=== PATIENT | male | born 1980 | race Caucasian/White ===

== ENCOUNTER 2017-05-17 09:25 | Observation (INO) | payer OTHER, MEDICAID ==
[2017-05-17] MEDS ORDERED: Sodium Chloride 0.9% 1,000 ML IV ONE (09:58)
--- NOTE | 2017-05-17 10:22 | EDM.PDOC ---
ED HPI GENERAL MEDICAL PROBLEM - General Chief Complaint: Chest Pain Stated Complaint: heart skipping a beat Time Seen by Provider: 05/17/17 09:50 Source of Information: Reports: Patient History Limitations: Reports: No Limitations - History of Present Illness INITIAL COMMENTS - FREE TEXT/NARRATIVE: HISTORY AND PHYSICAL: History of present illness: [37-year-old male with a history of long-term tobacco abuse, untreated hypertension and hypercholesterolemia, known type 2 diabetes with which the patient is noncompliant and a family history of coronary artery disease. Patient 's father had stents at 50 years old]. Patient now presents to the emergency department complaining of exertional chest pain over the last 2 days. Patient has had associated diaphoresis and shortness of breath as well as palpitations and lightheadedness associated with episodes. He describes them as exertional. Is no productive cough or fever. No pleuritic pain. Pain is not reproducible with palpation or movement Review of systems: As per history of present illness and below otherwise all systems reviewed and negative. Past medical history: As per history of present illness and as reviewed below otherwise noncontributory. Surgical history: As per history of present illness and as reviewed below otherwise noncontributory. Social history: No reported history of drug or alcohol abuse. Family history: As per history of present illness and as reviewed below otherwise noncontributory. Physical exam: Well-appearing 37-year-old male no acute distress clear lungs regular rate and rhythm nontender chest wall benign exam with normal symmetrical bilateral lower extremity HEENT: Atraumatic, normocephalic, pupils reactive, negative for conjunctival pallor or scleral icterus, mucous membranes moist, throat clear, neck supple, nontender, trachea midline. Lungs: Clear to auscultation, breath sounds equal bilaterally, chest nontender. Heart: S1S2, regular, negative for clicks, rubs, or JVD. Abdomen: Soft, nondistended, nontender. Negative for masses or hepatosplenomegaly. Negative for costovertebral tenderness. Pelvis: Stable nontender. Genitourinary: Deferred. Rectal: Deferred. Extremities: Atraumatic, negative for cords or calf pain. Neurovascular unremarkable. Neuro: Awake, alert, oriented. Cranial nerves II through XII unremarkable. Cerebellum unremarkable. Motor and sensory unremarkable throughout. Exam nonfocal. Diagnostics: [Chest x-ray no acute disease interpreted by me EKG normal sinus rhythm at 90 or more axis no STEMI] Therapeutics: [Patient stable and well-appearing. He took aspirin prior to arrival. 500 mg of by mouth Glucophage given to treat patients uncontrolled type 2 diabetes secondary to noncompliance] Impression: [Chest pain] Plan: [Signs and symptoms consistent with chest pain a possible cardiac etiology in a 37-year-old male with every cardiac risk factor including obesity tobacco hypertension cholesterol diabetes and family history in addition to his obvious male was. Workup unremarkable patient stable clinically. He took full- strength aspirin at home today. Case will be discussed with Rodri Schafer hospitalist transmission design engineer regarding observation telemetry admission for further cardiac workup and treatment as needed.] Definitive disposition and diagnosis as appropriate pending reevaluation and review of above. - Related Data Allergies Allergy/AdvReac Type Severity Reaction Status Date / Time No Known Allergies Allergy Verified 05/17/17 09:42 Home Meds: Home Meds Aspirin/Calcium Carbonate/Mag [Aspirin Buffered 325 mg Tab] 1 tab PO BID [History] Past Medical History HEENT History: Reports: None Cardiovascular History: Reports: Hypertension Other Cardiovascular History: Is supposed to be on high blood pressure medications; hasn't been for the past 6 years Respiratory History: Reports: None Gastrointestinal History: Reports: None Genitourinary History: Reports: None Musculoskeletal History: Reports: None Neurological History: Reports: None Psychiatric History: Reports: None Endocrine/Metabolic History: Reports: Other (See Below) Other Endocrine/Metabolic History: Borderline DM Hematologic History: Reports: None Immunologic History: Reports: None Oncologic (Cancer) History: Reports: None Dermatologic History: Reports: None - Infectious Disease History Infectious Disease History: Reports: None - Past Surgical History Head Surgeries/Procedures: Reports: None HEENT Surgical History: Reports: None Cardiovascular Surgical History: Reports: None GI Surgical History: Reports: Appendectomy, Cholecystectomy Male Surgical History: Reports: None Endocrine Surgical History: Reports: None Neurological Surgical History: Reports: None Musculoskeletal Surgical History: Reports: None Dermatological Surgical History: Reports: None Social & Family History - Family History Family Medical History: Noncontributory Cardiac: Reports: None Respiratory: Reports: None GI: Reports: None Psychiatric: Reports: None Endocrine/Metabolic: Reports: None Hematologic: Reports: None - Tobacco Use Smoking Status *Q: Current Every Day Smoker Years of Tobacco use: 20 Packs/Tins Daily: 0.5 - Caffeine Use Caffeine Use: Reports: Coffee - Recreational Drug Use Recreational Drug Use: No ED ROS GENERAL - Review of Systems Review Of Systems: See Below (History of present illness) ED EXAM, GENERAL - Physical Exam Exam: See Below (History of present illness) Course - Vital Signs Last Recorded V/S: Last Vital Signs Temp 37.0 C 05/17/17 09:37 Pulse 89 05/17/17 10:21 Resp 18 05/17/17 10:21 BP 169/120 H 05/17/17 10:21 Pulse Ox 94 L 05/17/17 10:21 - Orders/Labs/Meds Orders: Active Orders 24 hr Category Date Time Status Admission Status [Patient Status] [ADT] Stat ADT 05/17/17 10:55 Ordered Cardiac Monitoring [RC] . DIRECTED Care 05/17/17 09:49 Inactive EKG 12 Lead [EKG Documentation Completion] [RC] STAT Care 05/17/17 09:56 Active EKG Documentation Completion [RC] STAT Care 05/17/17 09:49 Inactive Labs: Laboratory Tests 05/17/17 05/17/17 05/17/17 Range/Units 09:55 09:55 09:55 WBC 7.55 (4.0-11.0) K/uL RBC 5.69 (4.50-5.90) M/uL Hgb 15.7 (13.0-17.0) g/dL Hct 45.4 (38.0-50.0) % MCV 79.8 L (80.0-98.0) fL MCH 27.6 (27.0-32.0) pg MCHC 34.6 (31.0-37.0) g/dL RDW Std Deviation 39.9 (28.0-62.0) fl RDW Coeff of Robin 14 (11.0-15.0) % Plt Count 236 (150-400) K/uL MPV 9.90 (7.40-12.00) fL Neut % (Auto) 59.7 (48.0-80.0) % Lymph % (Auto) 31.5 (16.0-40.0) % Hughes % (Auto) 6.8 (0.0-15.0) % Eos % (Auto) 1.6 (0.0-7.0) % Baso % (Auto) 0.4 (0.0-1.5) % Neut # (Auto) 4.5 (1.4-5.7) K/uL Lymph # (Auto) 2.4 (0.6-2.4) K/uL Hughes # (Auto) 0.5 (0.0-0.8) K/uL Eos # (Auto) 0.1 (0.0-0.7) K/uL Baso # (Auto) 0.0 (0.0-0.1) K/uL Nucleated RBC % 0.0 /100WBC Nucleated RBCs # 0 K/uL Sodium 137 (136-146) mmol/L Potassium 4.0 (3.5-5.1) mmol/L Chloride 101 (98-110) mmol/L Carbon Dioxide 22 (21-31) mmol/L BUN 13 (6.0-23.0) mg/dL Creatinine 0.9 (0.6-1.5) mg/dL Est Cr Clr Drug Dosing 120.95 mL/min Estimated GFR (MDRD) > 60.0 ml/min Glucose 318 H (60-110) mg/dL Calcium 9.8 (8.8-10.8) mg/dL Total Bilirubin 0.5 (0.1-1.5) mg/dL AST 20 (5-40) IU/L ALT 39 (8-54) IU/L Alkaline Phosphatase 117 (40-150) Troponin I < 0.10 (0.0-0.29) NG/ML Total Protein 7.4 (6.0-8.0) g/dL Albumin 4.2 (3.5-5.0) g/dL Globulin 3.2 (2.0-3.5) g/dL Albumin/Globulin Ratio 1.3 (1.3-2.8) Meds: Medications Discontinued Medications Generic Name Dose Route Start Last Admin Trade Name Freq PRN Reason Stop Dose Admin Sodium Chloride 1,000 mls @ 999 mls/hr 05/17/17 09:58 05/17/17 10:20 Normal Saline IV 05/17/17 10:58 999 mls/hr STAT ONE Administration Departure - Departure Time of Disposition: 11:07 Disposition: Refer to Observation Condition: Good Clinical Impression: Chest pain - My Orders Last 24 Hours: My Active Orders 05/17/17 09:56 EKG 12 Lead [EKG Documentation Completion] [RC] STAT 05/17/17 10:55 Admission Status [Patient Status] [ADT] Stat - Assessment/Plan Last 24 Hours: My Active Orders 05/17/17 09:56 EKG 12 Lead [EKG Documentation Completion] [RC] STAT 05/17/17 10:55 Admission Status [Patient Status] [ADT] Stat
[2017-05-17 10:25] LABS: CHLORIDE,CL 101 mmol/L (98-110); SODIUM,NA 137 mmol/L (136-146)
--- NOTE | 2017-05-17 10:26 | CR ---
EXAMINATION: Portable chest radiograph. HISTORY: Chest palpitations. FINDINGS: The trachea is midline. The cardiomediastinal silhouette is within normal limits. No pulmonary infilt rates, effusions or pneumothorax. Osseous structures appear unremarkable. IMPRESSION: No acute cardiopulmonary process.
[2017-05-17] MEDS: metFORMIN 500 MG Tab PO ONE ×2 (12:01→13:27)
[2017-05-17] MEDS ORDERED: Ondansetron 4 MG/2 ML SDV IVPUSH PRN (12:34)
[2017-05-17] MEDS ORDERED: Acetaminophen 325 MG Tab PO PRN (12:34)
[2017-05-17] MEDS ORDERED: Enoxaparin 40 MG/0.4 ML Syringe SUBCUT SCH (12:45)
--- NOTE | 2017-05-17 13:29 | PCM.HP ---
H&P History of Present Illness - General Date of Service: 05/17/17 Admit Problem/Dx: atypical chest pain Source of Information: Patient, Family History Limitations: Reports: No Limitations - History of Present Illness Initial Comments - Free Text/Narative: This 37 year old male with pmh of being told he had hyperlipidemia, HTN, and DM but currently not being treated for any, presented to the ED today with concerns of palpitations x 4 days. He reports he gets these skipping heart beats intermittently but they don't last long, this time though it has been about 4 days. He reports no chest pain per se, but has some pressure or "gurgling" as her describes it midsternally. He reports these palpitations being more noticeable with activity and having some dyspnea and diaphoresis with these events. He reports having an angiogram 10 years ago, and reports this showed no blockages. He was placed on Atenolol at that time, but stopped it about 1 month later and has not followed up since then. He was also told he had DM and dyslipidemia then but was not placed on medications, he was told to change his diet. He does smoke 3-4 cigarettes daily, weekend use of alcohol 6- 10 beers daily on the weekend. He denies recreational drug use. He does have a family history of CAD with his father. he also reports some blurred vision, polyuria and polydypsia. In the ED glucose elevated at 318, CXR negative. EKG SR with LVH, HR 90s. BP was noteably elevated at 150-160/90-100s. He will be admitted observation for atypical chest pain, uncontrolled DM and HTN. Has no PCP here - Related Data Allergies/Adverse Reactions: Allergies Allergy/AdvReac Type Severity Reaction Status Date / Time No Known Allergies Allergy Verified 05/17/17 09:42 Home Medications: Home Meds Aspirin/Calcium Carbonate/Mag [Aspirin Buffered 325 mg Tab] 1 tab PO BID [History] Blood Sugar Diagnostic [Glucose Test Strip] 1 each MC BID #1 box 05/18/17 [Rx] Blood-Glucose Meter [Freestyle System] 1 each MC ASDIRECTED #1 kit 05/18/17 [Rx] Lancets 1 each MC BID #1 box 05/18/17 [Rx] Lisinopril [Prinivil] 10 mg PO DAILY #30 tablet 05/18/17 [Rx] atorvaSTATin [Lipitor] 10 mg PO BEDTIME #30 tablet 05/18/17 [Rx] metFORMIN [Glucophage XR] 500 mg PO BIDMEALS #60 tab.er 05/18/17 [Rx] Past Medical History HEENT History: Reports: None Cardiovascular History: Reports: High Cholesterol, Hypertension. Denies: Afib, Arrhythmia, Blood Clots/VTE/DVT, Heart Failure, [place], Stents Respiratory History: Reports: None. Denies: COPD, PE Gastrointestinal History: Reports: GERD. Denies: GI Bleed Genitourinary History: Reports: None. Denies: Acute Renal Failure, Chronic Renal Insuffiency Musculoskeletal History: Reports: None Neurological History: Reports: None. Denies: CVA, Migraines, TIA Psychiatric History: Reports: None Endocrine/Metabolic History: Reports: Diabetes, Type II, Obesity/BMI 30+. Denies: Hypothyroidism Hematologic History: Reports: None Immunologic History: Reports: None Oncologic (Cancer) History: Reports: None Dermatologic History: Reports: None - Infectious Disease History Infectious Disease History: Reports: None - Past Surgical History Head Surgeries/Procedures: Reports: None HEENT Surgical History: Reports: None Cardiovascular Surgical History: Reports: None GI Surgical History: Reports: Appendectomy, Cholecystectomy Male Surgical History: Reports: None Endocrine Surgical History: Reports: None Neurological Surgical History: Reports: None Musculoskeletal Surgical History: Reports: None Dermatological Surgical History: Reports: None Social & Family History - Family History Family Medical History: Noncontributory Cardiac: Reports: None Respiratory: Reports: None GI: Reports: None Psychiatric: Reports: None Endocrine/Metabolic: Reports: None Hematologic: Reports: None - Tobacco Use Smoking Status *Q: Current Some Day Smoker Years of Tobacco use: 23 Packs/Tins Daily: 0.2 Used Tobacco, but Quit: No Tobacco Use Comment: Last cigarette was 05/17/2017 Smoking Cessation Information Provided To Patient: Yes Second Hand Smoke Exposure: No - Caffeine Use Caffeine Use: Reports: Soda - Alcohol Use Days Per Week of Alcohol Use: 2 Number of Drinks Per Day: 4 Total Drinks Per Week: 8 Date of Last Drink: 05/13/17 Alcohol Use Frequency: Socially (weekends) - Recreational Drug Use Recreational Drug Use: No - Living Situation & Occupation Living situation: Reports: Occupation: Employed H&P Review of Systems - Review of Systems: Review Of Systems: See Below General: Reports: No Symptoms. Denies: Fever, Chills, Malaise, Weakness HEENT: Reports: No Symptoms. Denies: Contact Lenses, Sinus Congestion Pulmonary: Reports: No Symptoms. Denies: Shortness of Breath, Wheezing, Pleuritic Chest Pain, Cough, Sputum Cardiovascular: Reports: Palpitations, Dyspnea on Exertion, Lightheadedness, Blood Pressure Problem. Denies: Chest Pain Gastrointestinal: Reports: No Symptoms. Denies: Abdominal Pain, Diarrhea, Nausea, Vomiting Genitourinary: Reports: No Symptoms. Denies: Dysuria, Frequency, Burning, Pain Skin: Reports: No Symptoms Psychiatric: Reports: No Symptoms Neurological: Reports: No Symptoms Hematologic/Lymphatic: Reports: No Symptoms Immunologic: Reports: No Symptoms Exam - Exam Exam: See Below - Vital Signs Vital Signs: Last Vital Signs Temp 97.5 F 05/17/17 12:34 Pulse 85 05/17/17 12:34 Resp 16 05/17/17 12:34 BP 155/102 H 05/17/17 12:34 Pulse Ox 98 05/17/17 12:34 Weight: 126.462 kg - Exam General: Alert, Oriented, Cooperative HEENT: Conjunctiva Clear, Mucosa Moist & [place], Posterior Pharynx Clear Neck: Supple, Trachea Midline, 2 Lungs: Clear to Auscultation, Normal Respiratory Effort Cardiovascular: Regular Rate, Regular Rhythm, Normal S1, Normal S2. No: Irregular Rhythm, Tachycardia, Systolic Murmur GI/Abdominal Exam: Normal Bowel Sounds, Soft, Non-Tender, Other (obese, noticeable abdominal hernia, likely incision from appy or cholecystectomy. No pain, reports he has had since he had surgery.) Extremities: Normal Inspection, Normal Range of Motion, Non-Tender, No Pedal Edema, Normal Capillary Refill Neuro Extensive - Mental Status: Alert, Oriented x3, Normal Mood/Affect, Normal Cognition Neuro Extensive - Motor, Sensory, Reflexes: CN II-XII Intact, Normal Gait Psychiatric: Alert, Normal Affect, Normal Mood - Patient Data Result Diagrams: 05/17/17 09:55 05/17/17 09:55 EKG INTERPRETATION EKG Date: 05/17/17 Rhythm: NSR Rate (Beats/Min): 90 [place]: Normal P-Wave: Present QRS: Normal (LVH noted) ST-T: Normal QT: Normal *Q Meaningful Use (ADM) - VTE *Q VTE Criteria *Q: - VTE Risk Assess *Q Each Risk Factor Represents 1 Point: Age 41 - 59 years, Obesity (BMI greater than 30) Total Score 1 Point Risk Factors: 2 Each Risk Factor Represents 2 Points: None Total Score 2 Point Risk Factors: 0 Each Risk Factor Represents 3 Points: None Total Score 3 Point Risk Factors: 0 Each Risk Factor Represents 5 Points: None Total Score 5 Point Risk Factors: 0 Venous Thromboembolism Risk Factor Score *Q: 2 - Stroke *Q Stroke Criteria *Q: - AMI *Q AMI Criteria *Q: - Problem List (1) Atypical chest pain SNOMED Code(s): 355852819 ICD Code: R07.89 - OTHER CHEST PAIN Status: Acute Current Visit: Yes (2) Palpitation SNOMED Code(s): 51895021, 308186651 ICD Code: R00.2 - PALPITATIONS Status: Resolved Current Visit: Yes (3) Obesity (BMI 30-39.9) SNOMED Code(s): 664223086, 250579348 ICD Code: E66.9 - OBESITY, UNSPECIFIED Status: Chronic Current Visit: Yes (4) HTN (hypertension) SNOMED Code(s): 83654986 ICD Code: I10 - ESSENTIAL (PRIMARY) HYPERTENSION Status: Acute Current Visit: Yes Qualifiers: Hypertension type: essential hypertension Qualified Code(s): I10 - Essential (primary) hypertension (5) DM type 2 (diabetes mellitus, type 2) SNOMED Code(s): 36509002 ICD Code: E11.9 - TYPE 2 DIABETES MELLITUS WITHOUT COMPLICATIONS Status: Acute Current Visit: Yes Qualifiers: Diabetes mellitus complication status: without complication Diabetes mellitus lobsterman insulin use: without long-term use Qualified Code(s): E11.9 - Type 2 diabetes mellitus without complications Problem List Initiated/Reviewed/Updated: Yes Orders Last 24hrs: Active Orders 24 hr Category Date Time Status Blood Glucose Check, Bedside [RC] TIDAC Care 05/17/17 12:37 Active Intake and Output [RC] Q12H Care 05/17/17 12:34 Active Oxygen Therapy [RC] PRN Care 05/17/17 12:34 Active Telemetry Monitoring [Cardiac Monitoring] [RC] . Care 05/17/17 12:37 Active DIRECTED Up ad Christel [RC] ASDIRECTED Care 05/17/17 12:34 Active VTE/DVT Education [RC] PER UNIT ROUTINE Care 05/17/17 12:34 Active Vital Signs [RC] Q4H Care 05/17/17 12:34 Active Consult to Theology Teacher [Consult to Diabetic Nurse Cons 05/17/17 13:23 Ordered Specialist] [CONS] Routine Citizen Of The [place] Diabetic [employer] Diet [DIET] Diet 05/17/17 Lunch Active TROPONIN I [CHEM] Q6H Lab 05/17/17 16:00 Ordered TROPONIN I [CHEM] Q6H Lab 05/17/17 22:00 Ordered Acetaminophen [Tylenol] Med 05/17/17 12:34 Active 650 mg PO Q4H PRN Aspirin Med 05/18/17 09:00 Active 81 mg PO DAILY Enoxaparin [Lovenox] Med 05/17/17 12:45 Active 40 mg SUBCUT Q24H Insulin Aspart [NovoLOG] Med 05/17/17 12:45 Active See Protocol SUBCUT TIDAC Lisinopril [Prinivil] Med 05/17/17 13:30 Ordered 10 mg PO DAILY Ondansetron [Zofran] Med 05/17/17 12:34 Active 4 mg IVPUSH Q4H PRN Resuscitation Status Routine Resus Stat 05/17/17 12:34 Ordered Medication Orders Acetaminophen (Tylenol) 650 mg PO Q4H PRN PRN Reason: Pain Aspirin (Aspirin) 81 mg PO DAILY LENCHO Enoxaparin Sodium (Lovenox) 40 mg SUBCUT Q24H LENCHO Insulin Aspart (Novolog) 0 unit SUBCUT TIDAC LENCHO PRN Reason: Protocol Ondansetron HCl (Zofran) 4 mg IVPUSH Q4H PRN PRN Reason: Nausea Assessment/Plan Comment:: This 37 year old male admitted with atypical chest pain and palpitations 1. Chest pain: Will monitor on telemetry and trend troponins, first set negative. ASA daily. Will plan for follow up with PCP and outpatient stress test. 2. Dm type 2: A1c 8.9, will place on Novolog SSI while hospitalized. Was given Metformin in ED. Will consult Dm educator. Will go home with metformin 1,000 mg BID. Educated extensively, >15 min regarding healthy lifestyle, DM and HTN. 3. HTN: Uncontrolled, will start Lisinopril 10 mg daily and monitor VTE prophylaxis: Lovenox. Dispo: tomorrow pending labwork. DISCHARGE PLAN: Discharge Diagnoses: Aytpical chest pain-resolved HTN New onset DM type 2 Obesity Dyslipidemia Smoker Joel was admitted and monitored for atypical chest pain. He had no further pain or "gurgling" in his chest and is feeling much better. Troponins negative and EKG SR with no ST segment changes, ACS ruled out. During his admission it was noted he had elevated BS and A1c, 8.9. He was started on Metformin for this. He visited with the healthcare educator, Gertrude. He was also started on Lisinopril 10 mg daily for HTN, BP today 130/90s. Total cholesterol 254, HDL 39 , and Triglycerides 585. LDL unable to be calculated due to triglyceride level. He was started on Atorvastatin 40 mg at bedtime for this. he was again encouraged to lose weight and make healthy lifestyle changes in terms of his diet. He was also educated on smoking cessation. He will be discharged home today. He will have outpatient stress test arranged and will follow with PCP to establish care, which is set up with Jade LATIF next week.
[2017-05-17] MEDS: Insulin Aspart 100 Units/ML 3 ML Pen SUBCUT SCH ×2 (13:32→17:02)
[2017-05-17] MEDS: Lisinopril 10 MG Tab PO SCH (14:52)
[2017-05-18] MEDS: Insulin Aspart 100 Units/ML 3 ML Pen SUBCUT SCH (07:10)
[2017-05-18] MEDS ORDERED: Aspirin 81 MG Tab.Chew PO SCH (09:00)
[2017-05-18 09:25] VITALS: BP 138/82
[2017-05-18] MEDS: Lisinopril 10 MG Tab PO SCH (09:25)
== END 2017-05-18 11:30 | disposition home or self-care (01) ==
LOC: MW.ED 09:25 → MW.MS 11:46
PROVIDERS: ADMIT Internal Medicine; ATTEND Internal Medicine
DX: R07.89 Other chest pain (principal); R00.2 Palpitations; E66.9 Obesity, unspecified; I10 Essential (primary) hypertension; E11.65 Type 2 diabetes mellitus with hyperglycemia; E78.00 Pure hypercholesterolemia, unspecified; F17.210 Nicotine dependence, cigarettes, uncomplicated; Z79.82 Long term (current) use of aspirin; Z79.84 Long term (current) use of oral hypoglycemic drugs; Z79.899 Other long term (current) drug therapy; Z90.49 Acquired absence of other specified parts of digestive tract; Z82.49 Family history of ischemic heart disease and other diseases of the circulatory system
CPT/HCPCS: 36415; 71010; 80053; 80061; 82962; 83036; 84484; 85025; 93005; 96360; 96372; 99285; A9270; G0378; J1650; J1815; J7040; 99283

== ENCOUNTER 2023-02-18 16:47 | Emergency (ER) | payer BC ==
[2023-02-18] MEDS ORDERED: Aspirin 81 MG Tab.Chew PO ONE (16:48)
[2023-02-18] MEDS ORDERED: Sodium Chloride 0.9% 2.5 ML Syringe FLUSH PRN (16:48)
[2023-02-18] MEDS ORDERED: Sodium Chloride 0.9% 10 ML Syringe FLUSH PRN (16:48)
[2023-02-18 17:00] LABS: BASOPHILS PERCENT AUTO 0.3 % (0.0-1.5); EOSINOPHILS ABSOLUTE AUTO 0.2 K/uL (0.0-0.7); EOSINOPHILS PERCENT AUTO 1.7 % (0.0-7.0); HEMATOCRIT 44.9 % (38.0-50.0); LYMPHOCYTES ABSOLUTE AUTO 3.3 K/uL (0.6-2.4); LYMPHOCYTES PERCENT AUTO 34.4 % (16.0-40.0); MEAN CORPUSCULAR HEMOGLOBIN 27.7 pg (27.0-32.0); MEAN CORPUSCULAR HGB CONC 35.6 g/dL (31.0-37.0); MEAN CORPUSCULAR VOLUME 77.8 fL (80.0-98.0); MONOCYTES ABSOLUTE AUTO 0.8 K/uL (0.0-0.8); MONOCYTES PERCENT AUTO 8.4 % (0.0-15.0); NEUTROPHILS ABSOLUTE AUTO 5.2 K/uL (1.4-5.7); NEUTROPHILS PERCENT AUTO 55.2 % (48.0-80.0); NRBC ABSOLUTE 0 K/uL; PLATELET COUNT,PLT 266 K/uL (150-400); RED BLOOD CELL COUNT 5.77 M/uL (4.50-5.90); WHITE BLOOD CELL COUNT,WBC 9.46 K/uL (4.0-11.0)
[2023-02-18] MEDS ORDERED: Morphine 4 MG/ML Syringe IVPUSH ONE ×2 (17:00→17:33)
[2023-02-18] MEDS ORDERED: Clopidogrel 75 MG Tab PO ONE (17:09)
[2023-02-18] MEDS ORDERED: Heparin Sodium 5,000 Units/ML Vial IV ONE (17:10)
[2023-02-18] MEDS ORDERED: Tenecteplase 50 MG Kit IV STA (17:11)
[2023-02-18] MEDS ORDERED: Heparin Sodium 5,000 Units/ML Vial IVPUSH ONE (17:13)
[2023-02-18] MEDS ORDERED: Heparin Sodium/0.45% NaCl 500 ML IV SCH (17:15)
[2023-02-18 17:22] LABS: INR 0.98 (0.86-1.11); PTT,PARTIAL THROMBOPLSTIN TIME 28.1 SEC (23.9-30.7)
[2023-02-18 17:31] LABS: A/G RATIO 1.1 (0.9-1.6); ALBUMIN 4.1 g/dL (3.4-5.0); BILIRUBIN TOTAL 0.6 mg/dL (0.2-1.0); CALCIUM 9.4 mg/dL (8.5-10.1); CREATININE 0.9 mg/dL (0.8-1.3); EST CRCL DRUG DOSING (CG) 114.96 mL/min; POTASSIUM,K 3.9 mmol/L (3.5-5.1); PROTEIN TOTAL,TP 7.9 g/dL (6.4-8.2); TSH ULTRASENSITIVE 0.99 uIU/mL (0.36-3.74)
[2023-02-18] MEDS ORDERED: Ondansetron 4 MG/2 ML SDV IVPUSH ONE (17:36)
[2023-02-18] MEDS ORDERED: Insulin Regular, Human 100 Units/ML 10 ML Vial SUBCUT ONE (17:53)
[2023-02-18 21:09] VITALS: BP 159/97; PULSE 91
== END 2023-02-18 21:10 ==
LOC: MW.ED 16:47
DX: I21.3 ST elevation (STEMI) myocardial infarction of unspecified site (principal); I10 Essential (primary) hypertension; I25.10 Atherosclerotic heart disease of native coronary artery without angina pectoris; E11.9 Type 2 diabetes mellitus without complications; E66.9 Obesity, unspecified; Z68.33 Body mass index [BMI] 33.0-33.9, adult; Z72.0 Tobacco use
CPT/HCPCS: 36415; 71045; 80053; 84443; 84484; 85025; 85610; 85730; 92977; 93005; 96365; 96366; 96375; 96376; 99285; A9270; J1644; J1815; J2270; J2405; J3101; J3490; 93010

== ENCOUNTER 2023-10-14 09:45 | Emergency (ER) | payer SELFPAY ==
[2023-10-14] MEDS: Amoxicillin/Clavulanate K 875-125 MG Tab PO STA (10:40)
[2023-10-14] MEDS: Lisinopril 10 MG Tab PO STA (10:40)
[2023-10-14] MEDS: Tetracaine HCl/PF 0.5% 4 ML Bottle EYELF STA (10:40)
[2023-10-14] MEDS: Sodium Chloride 0.9% 2.5 ML Syringe FLUSH PRN (10:42)
[2023-10-14] MEDS: Sodium Chloride 0.9% 10 ML Syringe FLUSH PRN (10:42)
[2023-10-14 10:44] LABS: BASOPHILS ABSOLUTE AUTO 0.05 K/uL (0.00-0.20); BASOPHILS PERCENT AUTO 0.4 % (0.0-1.0); EOSINOPHILS ABSOLUTE AUTO 0.07 K/uL (0.00-0.45); EOSINOPHILS PERCENT AUTO 0.6 % (0.0-6.0); HEMATOCRIT 47.9 % (42.0-52.0); IMMATURE GRAN ABSOLUTE AUTO 0.05 K/uL (0.00-0.05); IMMATURE GRAN PERCENT AUTO 0.4 % (0.0-0.4); LYMPHOCYTES ABSOLUTE AUTO 1.49 K/uL (1.00-4.80); LYMPHOCYTES PERCENT AUTO 12.9 % (24.0-44.0); MEAN CORPUSCULAR HEMOGLOBIN 27.2 pg (28.0-32.0); MEAN CORPUSCULAR HGB CONC 35.5 g/dL (32.0-36.0); MEAN CORPUSCULAR VOLUME 76.8 fL (83.0-99.0); MEAN PLATELET VOLUME 9.6 fL (9.4-12.4); MONOCYTES ABSOLUTE AUTO 0.76 K/uL (0.00-0.80); MONOCYTES PERCENT AUTO 6.6 % (0.0-8.0); NEUTROPHILS ABSOLUTE AUTO 9.12 K/uL (1.80-7.70); NEUTROPHILS PERCENT AUTO 79.1 % (41.0-71.0); PLATELET COUNT,PLT 279 K/uL (150-400); RED BLOOD CELL COUNT 6.24 M/uL (4.52-5.90); WHITE BLOOD CELL COUNT,WBC 11.54 K/uL (3.9-11.3)
[2023-10-14 11:04] LABS: INR 0.98 (0.86-1.11); PTT,PARTIAL THROMBOPLSTIN TIME 28.2 SEC (23.9-30.7)
[2023-10-14 11:20] LABS: A/G RATIO 1.2 (0.9-1.6); ALBUMIN 4.3 g/dL (3.4-5.0); BILIRUBIN TOTAL 0.8 mg/dL (0.2-1.0); CALCIUM 9.8 mg/dL (8.5-10.1); CARBON DIOXIDE,CO2 26.3 mmol/L (21.0-32.0); CREATININE 0.7 mg/dL (0.8-1.3); EST CRCL DRUG DOSING (CG) 146.27 mL/min; POTASSIUM,K 4.9 mmol/L (3.5-5.1); PROTEIN TOTAL,TP 7.8 g/dL (6.4-8.2)
[2023-10-14 12:02] LABS: HEMOGLOBIN A1C 9.8 %
[2023-10-14 12:12] VITALS: BP 185/114; PULSE 103
== END 2023-10-14 12:11 | disposition home or self-care (01) ==
LOC: MW.ED 09:45
DX: H66.92 Otitis media, unspecified, left ear (principal); I10 Essential (primary) hypertension; E11.9 Type 2 diabetes mellitus without complications; Z76.0 Encounter for issue of repeat prescription; E78.00 Pure hypercholesterolemia, unspecified; I25.2 Old myocardial infarction; Z90.49 Acquired absence of other specified parts of digestive tract; Z79.82 Long term (current) use of aspirin
CPT/HCPCS: 36415; 71046; 80053; 83036; 84484; 85025; 85610; 85730; 99284; A9270; 93010; 99283; J3490

== ENCOUNTER 2024-04-17 16:24 | Emergency (ER) | payer BC ==
[2024-04-17] MEDS ORDERED: Sodium Chloride 0.9% 20 ML SDV IV PRN (16:38)
[2024-04-17 16:49] LABS: BASOPHILS ABSOLUTE AUTO 0.05 K/uL (0.00-0.20); BASOPHILS PERCENT AUTO 0.3 % (0.0-1.0); EOSINOPHILS ABSOLUTE AUTO 0.02 K/uL (0.00-0.45); EOSINOPHILS PERCENT AUTO 0.1 % (0.0-6.0); HEMATOCRIT 46.4 % (42.0-52.0); HEMOGLOBIN 16.3 g/dL (14.0-18.0); IMMATURE GRAN ABSOLUTE AUTO 0.12 K/uL (0.00-0.05); IMMATURE GRAN PERCENT AUTO 0.7 % (0.0-0.4); LYMPHOCYTES ABSOLUTE AUTO 2.76 K/uL (1.00-4.80); LYMPHOCYTES PERCENT AUTO 16.6 % (24.0-44.0); MEAN CORPUSCULAR HEMOGLOBIN 27.7 pg (28.0-32.0); MEAN CORPUSCULAR HGB CONC 35.1 g/dL (32.0-36.0); MEAN CORPUSCULAR VOLUME 78.9 fL (83.0-99.0); MEAN PLATELET VOLUME 10.4 fL (9.4-12.4); MONOCYTES ABSOLUTE AUTO 1.33 K/uL (0.00-0.80); NEUTROPHILS PERCENT AUTO 74.3 % (41.0-71.0); PLATELET COUNT,PLT 321 K/uL (150-400); RED BLOOD CELL COUNT 5.88 M/uL (4.52-5.90); WHITE BLOOD CELL COUNT,WBC 16.58 K/uL (3.9-11.3)
[2024-04-17 17:03] LABS: INR 1.02 (0.86-1.11); PTT,PARTIAL THROMBOPLSTIN TIME 27.2 SEC (23.9-30.7)
[2024-04-17] MEDS: Sodium Chloride 0.9% 10 ML Syringe FLUSH PRN (17:04)
[2024-04-17] MEDS: Labetalol 100 MG/20 ML MDV IVPUSH ONE (17:04)
[2024-04-17] MEDS: Ondansetron 4 MG/2 ML SDV IVPUSH ONE (17:04)
[2024-04-17] MEDS: Iopamidol 755 MG/ML 500 ML Multipack Bottle IVPUSH STA (17:05)
[2024-04-17] MEDS: Sodium Chloride 0.9% 2.5 ML Syringe FLUSH PRN (17:05)
[2024-04-17 17:30] LABS: A/G RATIO 0.9 (0.9-1.6); ALANINE AMINOTRANSFERASE,ALT 102 IU/L (14-63); ALBUMIN 3.8 g/dL (3.4-5.0); ALKALINE PHOSPHATASE 129 U/L (46-116); ASPARTATE AMNIOTRANSFERASE,AST 73 IU/L (15-37); BILIRUBIN TOTAL 0.9 mg/dL (0.2-1.0); BLOOD UREA NITROGEN,BUN 16 mg/dL (7.0-18.0); CALCIUM 10.1 mg/dL (8.5-10.1); CARBON DIOXIDE,CO2 27.9 mmol/L (21.0-32.0); CHLORIDE,CL 94 mmol/L (98-107); EST CRCL DRUG DOSING (CG) 101.31 mL/min; ETHANOL BLOOD MEDICAL <3 mg/dL; GLUCOSE RANDOM 338 mg/dL (74-106); POTASSIUM,K 3.8 mmol/L (3.5-5.1); PROTEIN TOTAL,TP 8.1 g/dL (6.4-8.2); SODIUM,NA 131 mmol/L (136-148); TSH ULTRASENSITIVE 1.24 uIU/mL (0.36-3.74)
[2024-04-17 17:32] LABS: ESTIMATED GFR 94 mL/min (>60)
[2024-04-17] MEDS: Aspirin 81 MG Tab.Chew PO ONE (17:58)
[2024-04-17] MEDS: Tenecteplase 50 MG Kit IV ONE (18:05)
[2024-04-17 20:20] VITALS: BP 136/85; PULSE 45
== END 2024-04-17 21:24 ==
LOC: MW.ED 16:24
DX: I21.3 ST elevation (STEMI) myocardial infarction of unspecified site (principal); I63.9 Cerebral infarction, unspecified; I10 Essential (primary) hypertension; E78.00 Pure hypercholesterolemia, unspecified; K21.9 Gastro-esophageal reflux disease without esophagitis; E11.9 Type 2 diabetes mellitus without complications; E66.9 Obesity, unspecified; Z68.32 Body mass index [BMI] 32.0-32.9, adult; Z90.49 Acquired absence of other specified parts of digestive tract; Z79.82 Long term (current) use of aspirin; Z79.899 Other long term (current) drug therapy; Z75.8 Other problems related to medical facilities and other health care
CPT/HCPCS: 36415; 37195; 70450; 70496; 70498; 71045; 80053; 80307; 84443; 84484; 85025; 85610; 85730; 93005; 96374; 99285; A9270; J2405; J3101; J3490; Q9967; 93010; J1921

== ENCOUNTER 2024-08-24 17:52 | Emergency (ER) | payer BC ==
[2024-08-24] MEDS ORDERED: Sodium Chloride 0.9% 2.5 ML Syringe FLUSH PRN (18:31)
[2024-08-24] MEDS ORDERED: Sodium Chloride 0.9% 10 ML Syringe FLUSH PRN (18:31)
[2024-08-24 18:58] LABS: BASOPHILS ABSOLUTE AUTO 0.05 K/uL (0.00-0.20); BASOPHILS PERCENT AUTO 0.7 % (0.0-1.0); EOSINOPHILS ABSOLUTE AUTO 0.16 K/uL (0.00-0.45); EOSINOPHILS PERCENT AUTO 2.2 % (0.0-6.0); HEMATOCRIT 41.9 % (42.0-52.0); HEMOGLOBIN 15.1 g/dL (14.0-18.0); IMMATURE GRAN ABSOLUTE AUTO 0.02 K/uL (0.00-0.05); IMMATURE GRAN PERCENT AUTO 0.3 % (0.0-0.4); LYMPHOCYTES ABSOLUTE AUTO 2.01 K/uL (1.00-4.80); LYMPHOCYTES PERCENT AUTO 27.5 % (24.0-44.0); MEAN CORPUSCULAR HEMOGLOBIN 27.5 pg (28.0-32.0); MEAN CORPUSCULAR VOLUME 76.2 fL (83.0-99.0); MEAN PLATELET VOLUME 9.5 fL (9.4-12.4); MONOCYTES ABSOLUTE AUTO 0.45 K/uL (0.00-0.80); MONOCYTES PERCENT AUTO 6.1 % (0.0-8.0); NEUTROPHILS ABSOLUTE AUTO 4.63 K/uL (1.80-7.70); NEUTROPHILS PERCENT AUTO 63.2 % (41.0-71.0); PLATELET COUNT,PLT 244 K/uL (150-400); WHITE BLOOD CELL COUNT,WBC 7.32 K/uL (3.9-11.3)
[2024-08-24 19:30] LABS: A/G RATIO 1.2 (0.9-1.6); ALBUMIN 3.8 g/dL (3.4-5.0); BILIRUBIN TOTAL 0.4 mg/dL (0.2-1.0); CALCIUM 9.1 mg/dL (8.5-10.1); CARBON DIOXIDE,CO2 29.7 mmol/L (21.0-32.0); CREATININE 0.8 mg/dL (0.8-1.3); EST CRCL DRUG DOSING (CG) 126.64 mL/min; POTASSIUM,K 4.2 mmol/L (3.5-5.1)
[2024-08-24 20:51] VITALS: BP 156/99; PULSE 86
== END 2024-08-24 20:50 | disposition home or self-care (01) ==
LOC: MW.ED 17:52
DX: R07.9 Chest pain, unspecified (principal); I25.2 Old myocardial infarction; I10 Essential (primary) hypertension; E78.00 Pure hypercholesterolemia, unspecified; K21.9 Gastro-esophageal reflux disease without esophagitis; E11.9 Type 2 diabetes mellitus without complications; E66.9 Obesity, unspecified; Z68.33 Body mass index [BMI] 33.0-33.9, adult; Z90.49 Acquired absence of other specified parts of digestive tract; Z79.82 Long term (current) use of aspirin; Z79.899 Other long term (current) drug therapy; Z75.8 Other problems related to medical facilities and other health care
CPT/HCPCS: 36415; 71045; 71045-26; 80053; 84484; 85025; 87428-QW; 93005; 93010; 99285